=== PATIENT | male | born 1970 | race African-American/Black ===

== ENCOUNTER → 2021-03-14 | Day surgery (SDC) | payer OTHER ==
[2021-03-12 09:30] LABS: BASOPHILS % 0.6 % (0.0-1.0); EOSINOPHILS # (AUTO) 0.2 (0.0-0.4); EOSINOPHILS % 3.4 % (0.0-6.0); HEMATOCRIT 42.1 % (38.2-49.6); HEMOGLOBIN 13.5 g/dL (14.0-18.0); LYMPHOCYTES # (AUTO) 1.6 (1.0-3.2); LYMPHOCYTES % 32.7 % (18.0-39.1); MEAN CORPUSCULAR HEMOGLOBIN 28.9 pg (28-32); MEAN CORPUSCULAR HGB CONC 32.1 g/dL (31-35); MEAN CORPUSCULAR VOLUME 90.1 fL (81-99); MONOCYTES # (AUTO) 0.7 (0.2-0.8); MONOCYTES % 14.6 % (4.4-11.3); NEUTROPHILS # (AUTO) 2.4 (2.1-6.9); NEUTROPHILS % 48.3 % (38.7-80.0); PLATELET COUNT 214 x10e3/uL (140-360); RED BLOOD COUNT 4.67 x10e6/uL (4.3-5.7); RED CELL DISTRIBUTION WIDTH 14.9 % (11.7-14.4)
[2021-03-12 10:34] LABS: ANION GAP 12.4 mmol/L (8-16); CALCIUM 9.7 mg/dL (8.4-10.2); CREATININE, SERUM 1.22 mg/dL (0.72-1.25); POTASSIUM 4.4 mmol/L (3.5-5.1)
[~2021-03-14] MED LIST: ASPIRIN325 MG PO; ATORVASTATIN CA10 MG PO; ATROPINE SULFATE 1 MG/ML VIAL ONE; BUPIVACAINE HCL 0.5% INJ 30 ML VIAL INJ ONE; CLOPIDOGREL75 MG PO; DEXAMETHASONE SOD PHOS INJ 4 MG/ML SDV ONE; EPHEDRINE SULFATE INJ 50 MG/ML VIAL ONE; FENTANYL CITRATE/PF 100MCG/2 ML INJ ONE; FUROSEMIDE40 MG PO; GLYCOPYRROLATE INJ 0.2 MG/ML VIAL ONE; KETOROLAC TROMETHAMINE 30 MG/ML VIAL ONE; LIDOCAINE 1% W/EPINEPHRINE 20 ML VIAL ONE; LIDOCAINE HCL 2% LOCAL 20 ML VIAL ONE; LIDOCAINE HCL 2% LOCAL INJ 5 ML SDV VIAL INJ ONE; LISINOPRIL5 MG PO; METOPROLOL TART25 MG PO; MIDAZOLAM HCL 2 MG/2 ML VIAL ONE; ONDANSETRON HCL INJ 2MG/ML 2ML 2 MG/ML VIAL ONE; POVIDONE IODINE 0.05% 0.05 % ML PO ONE; PROPOFOL IV EMULSION 10 MG/ML 20 ML VIAL ONE; PROTONIX20 MG PO; ROPIVACAINE 0.5% 5 MG/ML 30 ML SDV ONE; SEVOFLURANE INHAL SOLN 250 ML PEN BTL ONE; SODIUM CHLORIDE 0.9% 50ML 100 ML ONE
[2021-03-14 09:55] VITALS: BP 125/82
== END | disposition home or self-care (01) ==
LOC: OR 05:26
PROVIDERS: ATTEND Orthopaedic Surgery
DX: S83.231A Complex tear of medial meniscus, current injury, right knee, initial encounter (principal); S83.281A Other tear of lateral meniscus, current injury, right knee, initial encounter; M22.41 Chondromalacia patellae, right knee; M67.51 Plica syndrome, right knee; G47.33 Obstructive sleep apnea (adult) (pediatric); I25.10 Atherosclerotic heart disease of native coronary artery without angina pectoris; I11.0 Hypertensive heart disease with heart failure; I50.9 Heart failure, unspecified; I25.2 Old myocardial infarction; E78.5 Hyperlipidemia, unspecified; R00.1 Bradycardia, unspecified; K21.9 Gastro-esophageal reflux disease without esophagitis; E66.9 Obesity, unspecified; M54.2 Cervicalgia; M54.9 Dorsalgia, unspecified; W19.XXXA Unspecified fall, initial encounter; Y92.009 Unspecified place in unspecified non-institutional (private) residence as the place of occurrence of the external cause; Z01.810 Encounter for preprocedural cardiovascular examination; Z01.812 Encounter for preprocedural laboratory examination; Z79.82 Long term (current) use of aspirin; Z79.02 Long term (current) use of antithrombotics/antiplatelets; Z79.899 Other long term (current) drug therapy; Z68.31 Body mass index [BMI] 31.0-31.9, adult; Z95.5 Presence of coronary angioplasty implant and graft; Z86.16 Personal history of COVID-19
CPT/HCPCS: 29882; 36415; 71046; 80048; 85025; 93005; C1713 ×2; J0461; J0690; J1100; J1885; J2001 ×2; J2250; J2405; J2704; J2795; J3010